=== PATIENT | female | born 1945 | race African-American/Black ===

== ENCOUNTER 2024-09-21 10:20 | Day surgery (SDC) | payer OTHER ==
[2024-09-19 09:47] VITALS: BMI 30.8
[2024-09-21] MEDS: PHENYLEPHRINE 2.5% OPTHALMIC DROP 2ML BOTTLE ONE (11:35)
[2024-09-21] MEDS: CYCLOPENTOLATE 2% OPHTH SOLN 2 ML BOTTLE ONE (11:35)
[2024-09-21] MEDS: TROPICAMIDE 1% 3 ML EYE DROPS ONE (11:35)
[2024-09-21] MEDS: CIPROFLOXACIN 0.3% EYE DROPS 5 ML BOTTLE ONE (11:35)
[2024-09-21 11:45] VITALS: RESP 16
[2024-09-21] MEDS ORDERED: NEO/POLYMYX B SULF/DEXAMETH OPHTHALMIC 5ML BOTTLE ONE (11:55)
[2024-09-21] MEDS ORDERED: LIDOCAINE 1% P/F 10 MG/ML VIAL ONE (11:55)
[2024-09-21] MEDS ORDERED: BSS (NA/CA/MG/K) BALANCED SALT SOLUTION OPHTH SOLN 15 ML BOTTLE ONE (11:55)
[2024-09-21] MEDS ORDERED: CARBACHOL 0.01% INTRA-OCULAR 1.5 ML VIAL ONE (11:55)
[2024-09-21] MEDS ORDERED: MIDAZOLAM HCL 2 MG/2 ML SINGLE DOSE VIAL ONE (12:27)
[2024-09-21] MEDS ORDERED: EPI-SHUGARCAINE (EPINEPHRINE 0.025% & LIDOCAINE-PF 0.75%) 4ML ONE (12:49)
[2024-09-21 13:38] VITALS: TEMP 97.3
[2024-09-21 14:04] VITALS: BP 151/84; PULSE 75
== END 2024-09-21 14:18 | disposition home or self-care (01) ==
LOC: FASU 10:20
PROVIDERS: ATTEND Ophthalmology
PROC: 08RK3JZ Replacement of Left Lens with Synthetic Substitute, Percutaneous Approach (ICD-10-PCS; principal; 2024-09-21 13:11)
DX: H28 Cataract in diseases classified elsewhere (principal)
CPT/HCPCS: 66984; V2632